=== PATIENT | male | born 1960 | race Two or more races ===

== ENCOUNTER 2021-04-09 08:22 | Emergency (ER) | payer OTHER ==
[~2021-04-09] VITALS: Ht 167.6 cm; Wt 80.7 kg
[2021-04-09] MEDS ORDERED: TAMS0.4C PO (08:37)
[2021-04-09] MEDS ORDERED: ENALAPRIL MALE2.5 MG (08:37)
[2021-04-09] MEDS ORDERED: DICLOFENAC POTA50 MG PO (12:22)
[2021-04-09] MEDS ORDERED: URIN D.S. TABL1 EACH PO (12:22)
== END 2021-04-09 13:26 ==
LOC: ER 08:22
DX: N40.1 Benign prostatic hyperplasia with lower urinary tract symptoms (principal); R33.8 Other retention of urine

== ENCOUNTER → 2021-04-14 15:18 | Outpatient (CLI) | payer OTHER ==
[~2021-04-14 15:18] MED LIST: DICLOFENAC POTA50 MG PO; ENALAPRIL MALE2.5 MG; TAMS0.4C PO; URIN D.S. TABL1 EACH PO
== END | disposition home or self-care (01) ==
LOC: LAB 15:18
PROVIDERS: ATTEND Urology
DX: N30.00 Acute cystitis without hematuria (principal)

== ENCOUNTER 2021-05-05 14:41 | Outpatient (CLI) | payer OTHER | END 2021-05-06 09:49 | disposition home or self-care (01) | LOC: RAD 14:41 | PROVIDERS: ATTEND Urology | DX: I11.0 Hypertensive heart disease with heart failure (principal) ==

== ENCOUNTER 2021-05-22 12:25 | Inpatient (IN) | payer OTHER ==
[~2021-05-22] VITALS: Ht 170.2 cm; Wt 79.4 kg
[2021-05-22] MEDS ORDERED: OMEGA-31000 MG PO (13:14)
[2021-05-22] MEDS ORDERED: ADULT LOW DOSE81 M1 PO (13:14)
[2021-05-28] MEDS ORDERED: ENALAPRIL MALEAT5 MG (14:49)
== END 2021-05-29 11:25 | disposition home or self-care (01) | DRG 714 ==
LOC: SURH 05-28 07:00 → O/R 05-28 11:25 → SURH 05-28 11:49 → O/R 05-29 11:25
PROVIDERS: ADMIT Urology; ATTEND Urology
PROC: 0TCB8ZZ Extirpation of Matter from Bladder, Via Natural or Artificial Opening Endoscopic (ICD-10-PCS; 2021-05-28)
PROC: 0VT08ZZ Resection of Prostate, Via Natural or Artificial Opening Endoscopic (ICD-10-PCS; principal; 2021-05-28 07:00)
DX: N40.0 Benign prostatic hyperplasia without lower urinary tract symptoms (principal); N21.0 Calculus in bladder

== ENCOUNTER 2021-06-03 10:54 | Outpatient (CLI) | payer OTHER ==
[~2021-06-03 10:54] MED LIST changes: +ADULT LOW DOSE81 M1 PO; +ENALAPRIL MALEAT5 MG; +OMEGA-31000 MG PO
== END 2021-06-03 10:55 | disposition home or self-care (01) ==
LOC: LAB 10:54
PROVIDERS: ATTEND Urology
DX: N30.00 Acute cystitis without hematuria (principal)

== ENCOUNTER 2021-08-25 07:48 | Outpatient (CLI) | payer OTHER | END 2021-08-25 10:50 | disposition home or self-care (01) | LOC: LAB 07:48 | PROVIDERS: ATTEND Urology | DX: R97.20 Elevated prostate specific antigen [PSA] (principal); R33.9 Retention of urine, unspecified; N21.0 Calculus in bladder ==

== ENCOUNTER 2021-09-01 07:14 | Outpatient (CLI) | payer OTHER | END 2021-09-01 07:16 | disposition home or self-care (01) | LOC: TOM 07:14 | PROVIDERS: ATTEND Urology | DX: N21.0 Calculus in bladder (principal); R97.20 Elevated prostate specific antigen [PSA]; R33.9 Retention of urine, unspecified ==

== ENCOUNTER 2021-11-26 01:34 | Emergency (ER) | payer OTHER ==
[~2021-11-26] VITALS: Ht 167.6 cm; Wt 80.3 kg
[2021-11-26] MEDS ORDERED: OMEGA-31000 MG (02:01)
[2021-11-26] MEDS ORDERED: ENALAPRIL-HCTZ1 EACH (02:01)
[2021-11-26] MEDS ORDERED: CHILDREN'S ASPI81 MG (02:01)
[2021-11-26] MEDS ORDERED: KETO10TA2 PO (07:17)
[2021-11-26] MEDS ORDERED: CEPHALEXIN500 MG PO (07:17)
== END 2021-11-26 07:24 ==
LOC: ER 01:34
DX: M79.89 Other specified soft tissue disorders (principal); I10 Essential (primary) hypertension

== ENCOUNTER 2023-09-16 12:06 | Outpatient (CLI) | payer OTHER ==
[~2023-09-16 12:06] MED LIST changes: +CEPHALEXIN500 MG PO; +CHILDREN'S ASPI81 MG; +ENALAPRIL-HCTZ1 EACH; +KETO10TA2 PO; +OMEGA-31000 MG
== END 2023-09-16 12:17 | disposition home or self-care (01) ==
LOC: RAD 12:06
PROVIDERS: ATTEND Urology
DX: N20.0 Calculus of kidney (principal)

== ENCOUNTER 2024-02-17 09:37 | Outpatient (CLI) | payer OTHER | END 2024-02-17 09:54 | disposition home or self-care (01) | LOC: RAD 09:37 | PROVIDERS: ATTEND Internal Medicine | DX: E78.9 Disorder of lipoprotein metabolism, unspecified (principal); I10 Essential (primary) hypertension ==

== ENCOUNTER → 2024-11-16 | Emergency (ER) | payer OTHER ==
[~2024-11-16] VITALS: Ht 170.2 cm; Wt 80.7 kg
[~2024-11-16] MED LIST changes: +IPRATROPIUM BROMIDE 0.5 MG/2.5 ML AMPUL.NEB IH ONE; +LEVALBUTEROL HCL 1.25 MG/3 ML SOLUTION IH ONE; +METHYLPREDNISOLONE SOD SUCC 125 MG VIAL ONE
[2024-11-16 09:25] LABS: HEMATOCRIT 43.3 % (39.0-48.0); HEMOGLOBIN 15.2 g/dL (13-16.00); MEAN CELL VOLUME 92.1 fL (80.0-100.00); MEAN CORPUSCULAR HEMOGLOBIN 32.3 pg (27.00-32.0); PLATELET COUNT 223 K/uL (150-450); RED BLOOD COUNT 4.71 M/uL (4.00-6.00); RED CELL DISTRIBUTION WIDTH 13.3 % (11.5-14.5)
[2024-11-16 09:33] LABS: URINE APPEARANCE Clear; URINE BILIRRUBIN Negative (NEGATIVE); URINE BLOOD Moderate; URINE COLOR Yellow; URINE GLUCOSE Negative (NEGATIVE); URINE KETONE Negative (NEGATIVE); URINE LEUKOCYTE Negative; URINE NITRATE Negative; URINE PROTEIN Negative (NEGATIVE); URINE UROBILINOGEN 0.2 E.U./dl
[2024-11-16 09:39] LABS: URINE BACTERIA 3.6 uL (0.0-1933); URINE EPITHELIAL CELLS 0.3 uL (0.0-38.8)
[2024-11-16 10:29] LABS: BILIRUBIN TOTAL 0.34 mg/dL (0.3-1.2); CALCIUM 9.2 mg/dL (8.5-10.1); CREATININE SERUM 1.25 mg/dL (0.70-1.30); GFR 58.72; GLOBULINA 3.8 G/DL (2.4-3.5); POTASSIUM 4.91 mEq/L (3.5-5.1); TOTAL PROTEIN 7.8 gm/dL (6.4-8.2)
== END | disposition home or self-care (01) ==
LOC: ER 06:29
PROVIDERS: General Practice
DX: R31.9 Hematuria, unspecified (principal); I10 Essential (primary) hypertension

== ENCOUNTER 2025-03-08 21:14 | Emergency (ER) | payer OTHER ==
[~2025-03-08] VITALS: Ht 170.2 cm; Wt 79.4 kg
[~2025-03-08 21:14] MED LIST changes: -IPRATROPIUM BROMIDE 0.5 MG/2.5 ML AMPUL.NEB IH ONE; -LEVALBUTEROL HCL 1.25 MG/3 ML SOLUTION IH ONE; -METHYLPREDNISOLONE SOD SUCC 125 MG VIAL ONE
[2025-03-08] MEDS ORDERED: DEXAMETHASONE SODIUM PHOSPHATE 4 MG/ML VIAL IM ONE (22:15)
[2025-03-08] MEDS ORDERED: KETOROLAC TROMETHAMINE 60 MG VIAL IM ONE (22:15)
== END 2025-03-08 22:20 | disposition home or self-care (01) ==
LOC: ER 21:14
DX: S76.811A Strain of other specified muscles, fascia and tendons at thigh level, right thigh, initial encounter (principal); X58.XXXA Exposure to other specified factors, initial encounter; Y93.54 Activity, bowling; Y92.89 Other specified places as the place of occurrence of the external cause; Y99.9 Unspecified external cause status